=== PATIENT | male | born 1990 | race Caucasian/White ===

== ENCOUNTER 2021-03-25 09:57 | Emergency (ER) | payer OTHER ==
[2021-03-25 10:50] LABS: BILIRUBIN NEGATIVE (NEGATIVE); BLOOD 3+ Ery/uL (NEGATIVE); GLUCOSE (U) NORMAL (NORMAL); LEUKOCYTES NEGATIVE Leu/uL (NEGATIVE); NITRITE NEGATIVE (NEGATIVE); PROTEIN TRACE (LOW) mg/dL (NEGATIVE); UROBILINOGEN 0.2 mg/dL (0.2-1.0); pH 8.5 (5.0-9.0)
[2021-03-25 10:51] LABS: CLARITY CLOUDY (CLEAR); COLOR AMBER (YELLOW)
[2021-03-25 11:13] LABS: AMORPHOUS PHOSPHATE CRYSTALS TRACE; URINARY RBC TNTC
[2021-03-25] MEDS ORDERED: MOTRIN600 MG PO (11:25)
== END 2021-03-25 11:40 | disposition home or self-care (01) ==
LOC: FER 09:57
PROVIDERS: Internal Medicine
DX: N20.1 Calculus of ureter (principal); F17.210 Nicotine dependence, cigarettes, uncomplicated; Z87.442 Personal history of urinary calculi
CPT/HCPCS: 81001

== ENCOUNTER 2021-05-10 02:45 | Emergency (ER) | payer OTHER ==
[~2021-05-10 02:45] MED LIST: MOTRIN600 MG PO
[2021-05-10 03:16] LABS: BILIRUBIN NEGATIVE (NEGATIVE); BLOOD 2+ Ery/uL (NEGATIVE); CLARITY CLEAR (CLEAR); COLOR YELLOW (YELLOW); GLUCOSE (U) NORMAL (NORMAL); LEUKOCYTES NEGATIVE Leu/uL (NEGATIVE); NITRITE NEGATIVE (NEGATIVE); PROTEIN TRACE (LOW) mg/dL (NEGATIVE); UROBILINOGEN 0.2 mg/dL (0.2-1.0)
[2021-05-10 03:18] LABS: BASOPHIL 0.5 % (0-2); EOSINOPHIL 2.5 % (0-5); HCT 45.6 % (42.0-52.0); HGB 16.6 g/dl (13.2-18.0); MCH 31.3 pg (25.0-31.0); MCHC 36.4 g/dL (32.0-36.0); MCV 85.9 fL (78.0-100.0); MONOCYTE 5.7 % (0-12); MPV 10.3 fL (6.0-9.5); NRBC 0; PLT 254 K/uL (150-400); RBC 5.31 M/uL (4.70-6.00); RDW 12.8 % (11.5-14.0); WBC 20.8 K/uL (4.0-10.5)
[2021-05-10 03:23] LABS: BACTERIA TRACE; MUCOUS TRACE; SQUAMOUS EPITHELIAL CELLS RARE; TRANSITIONAL EPITHELIAL CELLS RARE; URINARY WBC RARE
[2021-05-10 03:24] LABS: AMORPHOUS PHOSPHATE CRYSTALS TRACE
[2021-05-10 03:27] LABS: CREATININE 1.04 mg/dL (0.67-1.17); POTASSIUM 3.4 mmol/L (3.5-5.1)
[2021-05-10] MEDS ORDERED: PERCOCET 5-3251 EACH PO (04:44)
[2021-05-10] MEDS ORDERED: FLOMAX0.4 MG PO (04:44)
== END 2021-05-10 05:00 | disposition home or self-care (01) ==
LOC: FER 02:45
PROVIDERS: Emergency Medicine Emergency Medical Services
DX: N13.2 Hydronephrosis with renal and ureteral calculous obstruction (principal); D72.829 Elevated white blood cell count, unspecified; F17.200 Nicotine dependence, unspecified, uncomplicated; Z90.49 Acquired absence of other specified parts of digestive tract; Z88.8 Allergy status to other drugs, medicaments and biological substances
CPT/HCPCS: 36415; 80048; 81001; 85025; J1885; J2270; J2405; J7030